=== PATIENT | male | born 1995 | race Caucasian/White ===

== ENCOUNTER 2023-07-23 19:10 | Inpatient (IN) | payer OTHER ==
[2023-07-23 20:37] VITALS: BMI 27.4
[2023-07-23] MEDS ORDERED: NALOXONE HCL 0.4 MG/ML VIAL IM PRN (21:37)
[2023-07-23] MEDS ORDERED: ACETAMINOPHEN 325 MG TABLET (FP) PO PRN (21:37)
[2023-07-23] MEDS ORDERED: IBUPROFEN 400 MG TABLET (FP) PO PRN (21:37)
[2023-07-23] MEDS ORDERED: ONDANSETRON *ODT* 4 MG TABLET SL PRN (21:37)
[2023-07-23] MEDS ORDERED: BISMUTH SUBSALICYLATE 524 MG/30 ML PO PRN (21:37)
[2023-07-23] MEDS ORDERED: MAG HYDROX/AL HYDROX/SIMETH 30 ML UNIT-DOSE CUP PO PRN (21:37)
[2023-07-23] MEDS ORDERED: BENZOCAINE/MENTHOL (CHLORASEPTIC ) LOZENGE MM PRN (21:37)
[2023-07-23] MEDS ORDERED: hydrOXYzine PAMOATE 25 MG CAPSULE (FP) PO PRN (21:37)
[2023-07-23] MEDS ORDERED: MAGNESIUM HYDROX 2400MG/30ML ORAL SUSPENSION 30 ML CUP PO PRN (21:37)
[2023-07-23] MEDS ORDERED: LOPERAMIDE HCL 2 MG CAPSULE PO PRN (21:37)
[2023-07-23] MEDS ORDERED: BENZONATATE 200 MG CAPSULE PO PRN (21:37)
[2023-07-23] MEDS ORDERED: IBUPROFEN 600 MG TABLET (FP) PO PRN (21:37)
[2023-07-23] MEDS ORDERED: POLYETHYLENE GLYCOL (HEALTHYLAX) 3350 17 GM PACKET PO PRN (21:37)
[2023-07-23] MEDS ORDERED: DICYCLOMINE HCL 10 MG CAPSULE PO PRN (21:37)
[2023-07-23] MEDS ORDERED: guaiFENesin 600 MG TABLET.ER (FP) PO PRN (21:37)
[2023-07-23] MEDS ORDERED: NALOXONE (NARCAN) HCL 4 MG/0.1 ML SPRAY NS PRN (21:37)
[2023-07-24] MEDS: MELATONIN 5 MG TABLETS PO SCH (00:17)
[2023-07-24] MEDS: THIAMINE 100 MG TABLET PO SCH (00:17)
[2023-07-24] MEDS: NICOTINE 21 MG/24 HOURS TOPICAL PATCH TD SCH (11:00)
[2023-07-24] MEDS ORDERED: NICOTINE 21 MG/24 HOURS TOPICAL PATCH ONE (11:43)
[2023-07-24] MEDS: diazePAM 5 MG TABLET PO SCH (12:01)
[2023-07-24] MEDS: diazePAM 5 MG TABLET PO ONE (12:03)
[2023-07-24] MEDS: METHOCARBAMOL 500 MG TABLET PO PRN (12:04)
[2023-07-24] MEDS: PRENATAL VITAMINS W/ FOLIC ACID TABLET (FP) PO SCH (12:06)
[2023-07-24] MEDS: methaDONE 40 MG, methaDONE 10 MG PO ONE (12:41)
[2023-07-24 15:17] LABS: CHLORIDE 104 mmol/L (98-107); SODIUM 139 mmol/L (136-145)
[2023-07-24 15:20] LABS: HEMATOCRIT 36.4 % (35.4-49); HEMOGLOBIN 11.9 GM/dL (11.7-16.9); MCH 27.8 pg (25.7-33.7); MCHC 32.7 g/dl (32.0-35.9); MEAN PLT VOLUME 7.2 fl (7.5-11.1); PLATELET COUNT 413 10^3/uL (134-434); RBC 4.28 M/mm3 (4.00-5.60); WHITE BLOOD COUNT 4.3 K/mm3 (4.0-10.0)
[2023-07-24 15:21] LABS: ALBUMIN 3.1 g/dl (3.4-5.0)
[2023-07-24 15:22] LABS: ANION GAP 5 mmol/L (4-13); BLOOD UREA NITROGEN 12.2 mg/dL (7-18); CALCIUM 9.3 mg/dL (8.5-10.1); CO2 30 mmol/L (21-32)
[2023-07-24 15:23] LABS: GLUCOSE,RANDOM 116 mg/dL (74-106); SGPT/ALT 45 U/L (13-61)
[2023-07-24 15:24] LABS: CREATININE 0.9 mg/dL (0.55-1.3); SGOT/AST 24 U/L (15-37)
[2023-07-24 15:25] LABS: BILIRUBIN,TOTAL 0.3 mg/dL (0.2-1); TOT PROT 6.5 g/dl (6.4-8.2)
[2023-07-24 15:26] LABS: ALK PHOS 147 U/L (45-117)
[2023-07-24] MEDS: diazePAM 5 MG TABLET PO PRN (20:14)
[2023-07-24] MEDS: NICOTINE POLACRILEX 4 MG GUM BUC PRN (21:16)
[2023-07-25] MEDS: methaDONE HCL 10 MG TABLET PO ONE ×2 (12:37)
[2023-07-25] MEDS: methaDONE 40 MG, methaDONE 10 MG PO ONE (12:41)
[2023-07-25] MEDS: QUEtiapine FUMARATE 50 MG TABLET PO PRN (22:27)
[2023-07-26] MEDS: diazePAM 5 MG TABLET PO SCH (05:50)
[2023-07-26] MEDS: methaDONE HCL 10 MG TABLET PO SCH (09:09)
[2023-07-27] MEDS: diazePAM 5 MG TABLET PO SCH (05:51)
[2023-07-27] MEDS: hydrOXYzine PAMOATE 25 MG CAPSULE (FP) PO PRN (21:47)
[2023-07-28] MEDS: diazePAM 5 MG TABLET PO ONE (05:50)
[2023-07-28 08:41] VITALS: BP 114/60; PULSE 68; RESP 16; TEMP 97.7
== END 2023-07-28 10:44 | disposition home or self-care (01) | DRG 773 ==
LOC: YASAS 19:10 → Y3N 07-24 09:54
PROVIDERS: ADMIT Allergy & Immunology; ATTEND Surgery
PROC: HZ2ZZZZ Detoxification Services for Substance Abuse Treatment (ICD-10-PCS; principal; 2023-07-24)
DX: F10.230 Alcohol dependence with withdrawal, uncomplicated (principal); F11.20 Opioid dependence, uncomplicated; F13.20 Sedative, hypnotic or anxiolytic dependence, uncomplicated; F14.20 Cocaine dependence, uncomplicated; F17.210 Nicotine dependence, cigarettes, uncomplicated; F19.282 Other psychoactive substance dependence with psychoactive substance-induced sleep disorder; F19.24 Other psychoactive substance dependence with psychoactive substance-induced mood disorder; Z59.01 Sheltered homelessness
CPT/HCPCS: 36415; 80053; 80305; 80307; 85027; 86780; 93005; 93010